=== PATIENT | male | born 2000 ===

== ENCOUNTER → 2019-06-07 05:40 | Emergency (ER) | payer OTHER ==
[~2019-06-07 05:40] MED LIST: Iohexol 300* (CONTRAST) 10 ML SDV IV ONE; Morphine 4 MG/ML VIAL (1 ml) 4 MG/ML VIAL IV ONE; NS 0.9% 1000 ML** 1,000 ML IV ONE; Ondansetron INJ* 2 MG/ML VIAL IV ONE
[2019-06-07 08:09] LABS: ABS Lymphocytes 0.6 10^3/ul (1.0-4.8); ABS Monocytes 1.1 10^3/ul (0-0.8); ABS Neutrophils 7.3 10^3/ul (1.5-7.7); Eosinophil % 0.4 %; Hematocrit 47 % (42-52); Hemoglobin 16.6 g/dL (14.0-18.0); Lymphocyte % 6.8 %; Mean Corpuscular HGB Conc 35 g/dL (31-36); Mean Corpuscular Hemoglobin 31 pg (27-31); Mean Corpuscular Volume 87 fL (80-94); Mean Platelet Volume 10.6 fL (7.4-10.4); Platelet Count 178 10^3/uL (150-450); Red Blood Count 5.42 10^6 /uL (4.18-5.48); Red Cell Distribution Width 14 % (10-15); White Blood Count 9.1 10^3/uL (3.5-10.8)
[2019-06-07 08:17] LABS: Albumin 4.4 g/dL (3.2-5.2); Albumin/Globulin Ratio 1.5 (1-3); BUN/Creatinine Ratio 12.2 (8-20); C Reactive Protein 43.95 mg/L (<8.01); Calcium 9.1 mg/dL (8.6-10.3); EGFR African American 85.3 (>60); EGFR Non-African American 70.5 (>60); Potassium 3.8 mmol/L (3.5-5.0); Total Bilirubin 0.9 mg/dL (0.2-1.0); Total Protein 7.4 g/dL (6.4-8.9)
[2019-06-07 09:31] LABS: Urine Appearance Clear; Urine Bilirubin Negative (Negative); Urine Blood Negative (Negative); Urine Color Yellow; Urine Glucose Negative (Negative); Urine Ketones Negative (Negative); Urine Nitrite Negative (Negative); Urine Protein Negative (Negative); Urine Specific Gravity 1.013 (1.010-1.030); Urine Urobilinogen Negative (Negative)
--- NOTE | 2019-06-07 09:31 | ED ---
Abdominal Pain/Male - HPI Summary HPI Summary: Patient is a 18-year-old male who presents to the ED with RLQ pain which began to the mid abdomen and radiating now into the right side. He states it is the right side body, more so to the right lower quadrant compared to the right upper quadrant. No history of abdominal surgeries. Associated nausea, no vomiting. He has also been having sweats and chills, but no documented fevers. He states he is otherwise healthy. Medications include Concerta. Symptoms have been present 2-3 days, however worsened last evening. He continues to eat and drink okay. Endorses decreased by mouth intake. Sxs rated 6/10, constant and aching. No associated CVA tenderness. No current modifying factors. - History of Current Complaint Chief Complaint: EDAbdPain Stated Complaint: FEVER PER PT Time Seen by Provider: 06/07/19 06:39 Hx Obtained From: Patient Onset/Duration: Sudden Onset Timing: Constant Severity Initially: Moderate Severity Currently: Moderate Pain Intensity: 3 Pain Scale Used: 0-10 Numeric Location: Discrete At: RLQ Radiates: No Character: Cramping Aggravating Factor(s): Nothing Alleviating Factor(s): Position Associated Signs And Symptoms: Positive: Negative - Allergies/Home Medications Allergies/Adverse Reactions: Allergies Allergy/AdvReac Type Severity Reaction Status Date / Time No Known Allergies Allergy Verified 06/07/19 05:43 PMH/Surg Hx/FS Hx/Imm Hx Previously Healthy: Yes Endocrine/Hematology History: Denies: Hx Diabetes Cardiovascular History: Denies: Hx Hypertension History: Denies: Hx Renal Disease - Immunization History Hx Pertussis Vaccination: No Immunizations Up to Date: Yes Infectious Disease History: No Infectious Disease History: Denies: Traveled Outside the [place] in Last 30 Days - Social History Occupation: Unemployed Lives: Dormitory/Roommates Alcohol Use: None Hx Substance Use: No Substance Use Type: Reports: None Smoking Status (MU): Never Smoked Tobacco Review of Systems Positive: Chills, Skin Diaphoresis. Negative: Fever, Fatigue Negative: Palpitations, Chest Pain Negative: Shortness Of Breath, Cough Positive: Abdominal Pain, Nausea Genitourinary: Negative Positive: no symptoms reported, see HPI Negative: Arthralgia, Myalgia Negative: Rash, Bruising Neurological: Negative All Other Systems Reviewed And Are Negative: Yes Physical Exam Triage Information Reviewed: Yes Vital Signs On Initial Exam: Initial Vitals Temp Pulse Resp BP Pulse Ox 98.6 F 108 18 131/66 98 06/07/19 05:43 06/07/19 05:43 06/07/19 05:43 06/07/19 05:43 06/07/19 05:43 Vital Signs Reviewed: Yes Appearance: Positive: Well-Appearing, Well-Nourished Skin: Positive: Warm, Skin Color Reflects Adequate Perfusion Head/Face: Positive: Normal Head/Face Inspection Eyes: Positive: EOMI, GEOVANNA, Conjunctiva Clear Neck: Positive: Supple, Nontender, No Lymphadenopathy Respiratory/Lung Sounds: Positive: Clear to Auscultation, Breath Sounds Present Cardiovascular: Positive: RRR, Pulses are Symmetrical in both Upper and Lower Extremities Abdomen Description: Positive: Other: - right side pain Bowel Sounds: Positive: Present Musculoskeletal: Positive: Normal, Strength/ROM Intact Neurological: Positive: Speech Normal Psychiatric: Positive: Normal, Affect/Mood Appropriate AVPU Assessment: Alert Procedures - Sedation Patient Received Moderate/Deep Sedation with Procedure: No Diagnostics - Vital Signs Vital Signs Temp Pulse Resp BP Pulse Ox 06/07/19 09:00 60 98 06/07/19 08:44 58 127/84 99 06/07/19 08:14 64 119/58 99 06/07/19 08:00 70 99 06/07/19 07:44 73 125/61 98 06/07/19 07:28 16 06/07/19 07:14 72 128/74 97 06/07/19 07:00 67 98 06/07/19 06:44 70 122/72 98 06/07/19 05:43 98.6 F 108 18 131/66 98 - Laboratory Lab Results: Lab Results 06/07/19 06/07/19 06/07/19 Range/Units 07:21 07:21 07:21 WBC 9.1 (3.5-10.8) 10^3/uL RBC 5.42 (4.18-5.48) 10^6 /uL Hgb 16.6 (14.0-18.0) g/dL Hct 47 (42-52) % MCV 87 (80-94) fL MCH 31 (27-31) pg MCHC 35 (31-36) g/dL RDW 14 (10-15) % Plt Count 178 (150-450) 10^3/uL MPV 10.6 H (7.4-10.4) fL Neut % (Auto) 80.7 % Lymph % (Auto) 6.8 % Addison % (Auto) 11.9 % Eos % (Auto) 0.4 % Baso % (Auto) 0.2 % Absolute Neuts (auto) 7.3 (1.5-7.7) 10^3/ul Absolute Lymphs (auto) 0.6 L (1.0-4.8) 10^3/ul Absolute Monos (auto) 1.1 H (0-0.8) 10^3/ul Absolute Eos (auto) 0.0 (0-0.6) 10^3/ul Absolute Basos (auto) 0.0 (0-0.2) 10^3/ul Absolute Nucleated RBC 0.0 10^3/ul Nucleated RBC % 0.0 Sodium 135 (135-145) mmol/L Potassium 3.8 (3.5-5.0) mmol/L Chloride 100 L (101-111) mmol/L Carbon Dioxide 28 (22-32) mmol/L Anion Gap 7 (2-11) mmol/L BUN 16 (6-24) mg/dL Creatinine 1.31 H (0.67-1.17) mg/dL Est GFR ( Amer) 85.3 (>60) Est GFR (Non-Af Amer) 70.5 (>60) BUN/Creatinine Ratio 12.2 (8-20) Glucose 119 H (70-100) mg/dL Lactic Acid 1.1 (0.5-2.0) mmol/L Calcium 9.1 (8.6-10.3) mg/dL Total Bilirubin 0.90 (0.2-1.0) mg/dL AST 13 (13-39) U/L ALT 13 (7-52) U/L Alkaline Phosphatase 66 (34-104) U/L C-Reactive Protein 43.95 H (<8.01) mg/L Total Protein 7.4 (6.4-8.9) g/dL Albumin 4.4 (3.2-5.2) g/dL Globulin 3.0 (2-4) g/dL Albumin/Globulin Ratio 1.5 (1-3) Lipase 14 (11.0-82.0) U/L Result Diagrams: 06/07/19 07:21 06/07/19 07:21 Lab Statement: Any lab studies that have been ordered have been reviewed, and results considered in the medical decision making process. Abdominal Pain Male Course/Dx - Course Course Of Treatment: This patient is evaluated for RLQ pain as well as nausea without associated vomiting. No hematochezia, or melena. No history of abdominal surgeries. Labs obtained which are fairly unremarkable except for a slightly elevated CRP of 43. Patient is given fluids, morphine, Zofran. CT abdomen/pelvis: No evidence of appendicitis. Hepatosplenomegaly. On reexamination, patient is feeling improved, slight nausea, and continues to have No vomit. He will be diagnosed with abdominal pain and is given Zofran. - Diagnoses Differential Diagnosis/HQI/PQRI: Appendicitis, Bowel Obstruction, Constipation, Diverticulitis Provider Diagnoses: Abdominal pain, Nausea Discharge ED - Sign-Out/Discharge Documenting (check all that apply): Patient Departure - Discharge Plan Condition: Stable Disposition: HOME Prescriptions: Ondansetron ODT TAB* [Zofran 4 MG Odt TAB*] 4 mg PO Q6H PRN #12 tab.odt MDD 4 PRN Reason: Nausea Patient Education Materials: Acute Abdominal Pain (ED) Referrals: No Primary Care Phys,NOPCP [Primary Care Provider] - Additional Instructions: Zofran up to four times daily as needed for nausea Tylenol for any discomfort Rest and drink plenty of fluids - Billing Disposition and Condition Condition: STABLE Disposition: Home
[2019-06-07 09:58] VITALS: BP 123/62
== END | disposition home or self-care (01) ==
LOC: ED 05:40
DX: R10.31 Right lower quadrant pain (principal); R11.0 Nausea
CPT/HCPCS: 36415; 74177; 80053; 81003; 83605; 83690; 85025; 86140; 96374; 96375; 99283; J2270; J2405; Q9967